=== PATIENT | male | born 1955 | race African-American/Black ===

== ENCOUNTER → 2021-04-18 07:34 | Outpatient (CLI) | payer SELFPAY ==
--- NOTE | 2021-04-18 | IMM_PTH ---
PATIENT: PIO JARA LOC: [facility] U#:[id number] AGE/SX: 70/M ROOM: RE04/18/[address]: Dr. Ruy Saleh MD : 1955 BED: DIS: SPEC #: [id number] RECD: 04/18/21 12:07 STATUS: NATALIE REQ #: [id number] SONDRA: 04/18/21 00:[address]: Ruy Saleh DEPT: IMMUNOHISTOCHEMISTRY RECD BY: Trish Ochoa Tissues: Stomach, NOS Procedures: Synapto (add) CD45 (add) CD56 (add) CHROMO (add) CK20 (add) CK7 (add) CK8 (add) KI-67 (add) TTF1 (add) Pankeratin (initial) PHYSICIAN [facility] INSTIT[facility] [address] [address] SPECIMEN INFORMATION: Tissue Source: Distal stomach Clinical Info: Gastric tumor Specimen Number: [id number] CPT code: 54102, 98985 x9 METHODOLOGY: Deparaffinized sections of prefer/formalin-fixed tissue or PAP/DQ stained slides are incubated with monoclonal/polyclonal antibodies/oligonucleotide probes. Localization is made via biotin free immunoperoxidase method. Appropriate controls are performed and reacted as expected. Results on target cell population are indicated in the following table: RESULTS: ANTIBODY / CLONE RESULT AE1-3 (AE1/AE3/PCK26) positive CK7 (OV-TL12/30) positive CK8 (35kfabY44) positive CK20 (KS20.8) negative CD45 (RP2/18) negative CD56 (123C3.D5) positive Chromo (LK2H10) positive Synapto (polyclonal) positive TTF-1 (8G7G3/1) positive Ki-67 (30-9) positive, high, ~80% These tests were developed and their performance characteristics determined by [facility]. They may not have been cleared or approved by the [place] Food and Drug Administration. The FDA has determined that such clearance or approval is not necessary. The above immunohistochemical/dualISH markers are ordered and reviewed by the Pathologist. 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 LUIS:nalini 04/19/2021
--- NOTE | 2021-04-18 | SENDIN_PTH ---
PATIENT: PIO JARA LOC: [facility] U#:[id number] AGE/SX: 70/M ROOM: RE04/18/[address]: Dr. Ruy Saleh MD : 1955 BED: DIS: SPEC #: [id number] RECD: 04/18/21 07:37 STATUS: NATALIE CRAIG #: [id number] SONDRA: 04/18/21 00:[address]: Ruy Saleh DEPT: SEND IN SLIDES FOR REVIEW RECD BY: Trish Ochoa Procedures: N/C FOR SEND IN SLIDES
== END ==
PROVIDERS: Visit Provider Internal Medicine Medical Oncology
DX: C7A.8 Other malignant neuroendocrine tumors (principal)
CPT/HCPCS: 88341; 88342